=== PATIENT | male | born 1975 | race Two or more races ===

== ENCOUNTER 2022-07-26 16:50 | Emergency (ER) | payer MEDICAID, SELFPAY ==
[2022-07-26 16:56] VITALS: BP 119/80; BP 148/105; PULSE 107; PULSE 98; RESP 20; TEMP 36.4; O2SAT 99; BMI 25.1
--- NOTE | 2022-07-26 17:32 | ED.GENADULT ---
HPI - General Adult General Chief complaint: ETOH/Substance Use Stated complaint: OD,16MG NASAL NARCAN,BAGGED X'S 25 MIN,A&O NOW Time Seen by Provider: 07/26/22 16:53 Source: patient and EMS Mode of arrival: EMS Limitations: no limitations History of Present Illness HPI narrative: Patient comes to the emergency room after having an overdose. According to EMS, patient was given by bystander 16 mg intranasal of Narcan and he was being ventilated via bag mask valve. Eventually, patient woke up completely and was brought to the emergency room. Patient states that this was an accident, denies homicidal or suicidal ideation. Patient is asymptomatic. Patient states that he was experimenting with drugs, he usually does not use any drugs according to him Related Data Allergies Allergy/AdvReac Type Severity Reaction Status Date / Time No Known Allergies Allergy Unverified 02/29/20 14:38 [No Known Allergies*] Review of Systems Review of Systems: Constitutional : No Weight loss, No Fever, No Chills, No Night Sweats, No Fatigue, No Malaise ENT/Mouth : No Hearing loss, No Ear Pain, No Nasal Congestion, No Sinus Pain, No Hoarseness, No sore throat, No Rhinorrhea, No Swallowing Difficulty Eyes: No Eye Pain, No Swelling, No Redness, No Foreign Body, No Discharge, No Vision Changes Cardiovascular : No Chest Pain, No SOB, No Dyspnea on Exertion, No Orthopnea, No Edema, No Palpitations Respiratory : No Cough, No Sputum, No Wheezing, No Smoke Exposure, No Dyspnea Gastrointestinal : No Nausea, No Vomiting, No Diarrhea, No Constipation, No abdominal Pain, No Hematochezia, No Melena Genitourinary : no irregular bleeding, No Dysuria, No Urinary Frequency, No Hematuria, No Urinary Incontinence, No Urgency, No Flank Pain, No Urinary Flow Changes, No Hesitancy Musculoskeletal : No joint pain, No Myalgias, No Joint Swelling Skin : No Skin Lesions, No rash Neuro : No Weakness, No Numbness, No Paresthesias, No Loss of Consciousness, No Dizziness, No Headache Psych : No Anxiety/Panic, No Depression, No SI/HI/AH/VH, No Social Issues, Heme/Lymph: No Bruising, No Bleeding,No Lymphadenopathy Endocrine : No Polyuria, No Polydipsia, No Temperature Intolerance [facility] Past Medical History Medical History (Updated 07/26/22 @ 17:36 by Hilda Grimes MD) Substance abuse Social History Social History Advance Directives: No Advance Directives Information Provided: No Physical Exam ED Vital Signs: Vital Signs - 24 hr 07/26/22 16:56 Temperature 97.6 F Pulse Rate 98 Respiratory Rate 20 Blood Pressure 119/80 Oxygen Delivery Method Room Air BMI result Body Mass Index 25.1 Const Other: Appearance: Alert. Oriented X3. No acute distress. Eyes: Pupils equal, round and reactive to light. ENT: Pharynx normal. Neck: Normal inspection. Neck supple. No lymph nodes noted. No crepitus CVS: Normal heart rate and rhythm. Pulses normal. Normal S1 and S2 Respiratory: No respiratory distress. Breath sounds normal. No Wheezing. No rales Abdomen: Soft and nontender. No rigidity. No distention. Skin: Skin warm and dry. Normal skin color. Normal skin turgor. Extremities: No lower extremity edema. No Lacerations. No Rash Neuro: Oriented X 3. No motor deficit. No sensory deficit. Moving all extremities. No slurred speech. CN 2 through 12 grossly intact Psych: calm, cooperative, normal affect Course Course Course Narrative: -patient is alert and oriented x4, no acute distress, all vitals stable -patient has been here for approximately 1 hour. Patient states that he does not want to be here any longer. -I discussed with the patient that the effects of Narcan can wear off and he can become drowsy and stop breathing. Patient acknowledges the risk of leaving the hospital, and requested to leave against medical advice. -patient was given home Narcan -patient declined care/sude consult Medical Decision Making Differential Diagnosis Differential Diagnoses: The differential diagnosis associated with the presentation includes (Substance abuse, overdose) Discharge Plan Discharge Clinical Impression: Accidental overdose Patient Disposition: Left Against Medical Advice Instructions: Adult Overdose (ED) Additional Instructions: Please follow-up with your primary care physician tomorrow. If you have any worsening or new symptoms, please return to the emergency room or call 911
--- OUTSIDE RECORDS SUMMARY | 2022-07-26 17:32 | XMS_ITS | Continuity of Care Document ---
:1975 Author Organization [facility] Adult Address [address] [place] [id number]- Care Team Providers Name Role Phone Pj Lynch MD Primary Care Physician Encounter [facility] [place] ACCT R [id number] Date(s): 03/27/22 - 05/06/[address] [address] Attending Physician: Pj Lynch MD Allergies, Adverse Reactions, Alerts No Known Allergies Immunizations Given and Recorded Vaccine Date Status Refusal Reason SARS-CoV-2 (COVID-19) mRNA BNT-162b2 vac 10/30/20 Recorde d SARS-CoV-2 (COVID-19) mRNA BNT-162b2 vac 10/09/20 Recorde d Medications triamcinolone 0.1% topical cream See Instructions, Topically 2 times a day for 2 weeks, # 30 Gm, 0 Refills, Maintenance, 04/30/22 18:32:00 EST, [facility]/pharmacy #[id number], Partial fill upon patient request if the prescription is for a schedule II opioid drug., Topically 2 times a day for 2 w... Start Date: 04/30/22 Status: Ordered Problem List Condition Confirmation Course Effective Dates Status Health Stat us Informant Alcoholism Confirmed Active Substance abuse Confirmed Active Social History Social History Type Response Tobacco Other: 1/3 ppd, 15 pack yr h istory. Sex Patient Care team information Care Team PersonnelName: Pj Lynch MD Position: [facility] Primary Care Physician Member Role: PCP Address: Address: [address] [place] [address] [address] [place] [address]- Care Team Related PersonsName: MAGALI ALFONSO
--- OUTSIDE RECORDS SUMMARY | 2022-07-26 17:32 | XMS_ITS | Continuity of Care Document ---
:1975 Author Organization [facility] Adult Address [address] [place] [address]- Care Team Providers Name Role Phone Pj Lynch MD Primary Care Physician [place] [facility] [place] 03/26[place]22 - 04/02/22 [facility] Adult [address] [place] [address]- Encounter Diagnosis Well adult exam (Discharge Diagnosis) - 03/26/22 Alcoholism (Discharge Diagnosis) - 03/26/22 Substance abuse (Discharge Diagnosis) - 03/26/22 Screening for hyperlipidemia (Discharge Diagnosis) - 03/26/22 Fatigue (Discharge Diagnosis) - 03/26/22 Attending Physician: Pj Lynch MD Allergies, Adverse Reactions, Alerts No Known Allergies Immunizations Given and Recorded Vaccine Date Status Refusal Reason SARS-CoV-2 (COVID-19) mRNA BNT-162b2 vac 10/30/20 Recorde d SARS-CoV-2 (COVID-19) mRNA BNT-162b2 vac 10/09/20 Recorde d Problem List Condition Confirmation Course Effective Dates Status Health Stat us Informant Alcoholism Confirmed Active Substance abuse Confirmed Active Diagnosis Diagnosis Type Effective Dates Health Clinical Infor [facility] Status Service Well adult exam Discharge 03/26/22 Diagnosis Alcoholism Discharge 03/26/22 Diagnosis Substance abuse Discharge 03/26/22 Diagnosis Screening for Discharge 03/26/22 hyperlipidemia Diagnosis Fatigue Discharge 03/26/22 Diagnosis Vital Signs Most recent to oldest [Reference Range]: 1 Weight 83.5 kg (03/26/22 2:15 PM) Weight Obtained Via Patient/family stated (03/26/22 2:15 PM) Social History Social History Type Response Tobacco Other: 1/3 ppd, 15 pack yr h istory. Sex Patient Care team information PersonnelName: Pj Lynch MD Address: Address: [address] [place], [place] [address]
--- OUTSIDE RECORDS SUMMARY | 2022-07-26 17:32 | XMS_ITS | Continuity of Care Document ---
:1975 Author Organization [facility] Adult Address [address] [place] [address]- Care Team Providers Name Role Phone Not on Staff, PCP Primary Care Physician Unavailable Encounter [facility] Date(s): 12/30/21 - 01/29/22 [facility] Adult [address] [place] [id number] Allergies, Adverse Reactions, Alerts No Known Allergies
--- OUTSIDE RECORDS SUMMARY | 2022-07-26 17:32 | XMS_ITS | Continuity of Care Document ---
:1975 Author Organization [facility] Adult Address [address] [place] [address]- Care Team Providers Name Role Phone Pj Lynch MD Primary Care Physician Encounter [facility] ACCT R [id number] Date(s): 04/30/22 - 05/07/22 [facility] Adult [address] [place] [id number]- Encounter Diagnosis Elevated LFTs (Discharge Diagnosis) - 04/30/22 Elevated BP without diagnosis of hypertension (Discharge Diagnosis) - 04/30/22 Rash (Discharge Diagnosis) - 04/30/22 Attending Physician: Pj Lynch MD Allergies, Adverse Reactions, Alerts No Known Allergies Immunizations Given and Recorded Vaccine Date Status Refusal Reason SARS-CoV-2 (COVID-19) mRNA BNT-162b2 vac 10/30/20 Recorde d SARS-CoV-2 (COVID-19) mRNA BNT-162b2 vac 10/09/20 Recorde d Medications triamcinolone 0.1% topical cream See Instructions, Topically 2 times a day for 2 weeks, # 30 Gm, 0 Refills, Maintenance, 04/30/22 18:32:00 EST, [facility]/pharmacy #[id number], Partial fill upon patient request if the prescription is for a schedule II opioid drug., Topically 2 times a day for 2 w... Start Date: 04/30/22 Status: Ordered Problem List Condition Confirmation Course Effective Dates Status Health Stat us Informant Alcoholism Confirmed Active Substance abuse Confirmed Active Diagnosis Diagnosis Type Effective Dates Health Clinical Infor [facility] Status Service Elevated LFTs Discharge 04/30/22 Diagnosis Elevated BP without Discharge 04/30/22 diagnosis of Diagnosis hypertension Rash Discharge 04/30/22 Diagnosis Vital Signs Most recent to oldest [Reference Range]: 1 2 Weight 87.1 kg (04/30/22 3:59 PM) Oxygen Saturation [94-100 %] 97 % (04/30/22 3:59 PM) Pulse Rate [55-90 bpm] 83 bpm (04/30/22 3:59 PM) Blood Pressure [90-138/55-84 mm Hg] 142/83 mm Hg 145/ 82 mm Hg *H* *H* (04/30/22 4:09 PM) (04/30/22 3:59 PM) Temperature [96.8-100.4 DegF] 98.1 DegF (04/30/22 3:59 PM) Mode of Delivery (Oxygen) Room air (04/30/22 3:59 PM) Blood pressure sites Arm, left Arm, left (04/30/22 4:09 PM) (04/30/22 3:59 PM) Temperature Route Oral (04/30/22 3:59 PM) Weight Obtained Via Standing scale (04/30/22 3:59 PM) Social History Social History Type Response Tobacco Other: / ppd, 15 pack yr h istory. Sex Note Debby Vitale: PERFORM, SIGN, VERIFY Event Display: Patient Education/Instruction Authored Date: [id number] [facility] *[facility] [place] [facility] Clinical Summary Name CLAUDIA ACHARYA Age 47 Years 1975 PCP Pj Lynch MD PCP Visit Date 04/30/2022 15:45:00 Additional Instructions: Scheduled Appointments?? Future Appointments ?No Future Appointments Scheduled Follow-Up Instructions ?? Diagnosis Other specified abnormal findings of blood chemistry Medications: Please continue your medications until treatment is completed or stopped by your provider. Discuss any questions related to medications with your provider. Allergy Info:?? NKA Medications Given This Visit Future Orders ?Hepatitis B Surface Antigen? Order Date:04/30/22?- Complete on or after?04/30/22 ?Hepatitis C Ab? Order Date:04/30/22?- Complete on or after?04/30/22 ?Comprehensive Metabolic Panel? Order Date:04/30/22?- Complete on or after?04/30/22 Vital Signs Height Weight 87.1 kg BMI Blood Pressure 142 mm Hg/83 mm Hg Temperature 98.1 DegF Pulse Rate 83 bpm Respiratory Rate 02 Sat Mode of Delivery 97 %/Room air You can now view a summary of your hospital visit from the comfort of your home through a free online portal called [employer]. [employer] is a website that allows you to securely view yourmedical information including discharge summary, medications and follow-up visits. ??You can also send a secure electronic message to your doctor???s office to request appointments, renew medications or just ask a question. You can enroll at [email or web address] or register during your next office visit. Disclaimer:?? The information provided is of a general nature and is intended to be used in conjunction with the recommendations and advice of your health care practitioner. ??Every effort has been made to ensure that the information provided is accurate and complete at the time it is provided to you however, as your needs change, or, as new ??information becomes available, different or additional instructions may be required. If you have questions, please consult with your primary care provider or pharmacist, as appropriate.??This information is not intended to serve as substitution for assessment and evaluation by a qualified health care provider. If you do not have a primary care provider, you may find a [facility] provider by calling [facility] [employer] at [phone]. For information about the plan of care including goals and instructions for your diagnosis, please see the patient education orders section of this document. Patient Education Materials?? The content of this educational material or handout may have been modified, supplemented, or adaptedfrom its original content and format to support your individualized medical care. Patient Care team information Care Team PersonnelName: Pj Lynch MD Position: S Primary Care Physician Member Role: PCP Address: Address: [address] [place] [address] [address] [place] [address]- Care Team Related PersonsName: MAGALI ALFONSO
[2022-07-26 17:36] VITALS: O2SAT 95
[2022-07-26] MEDS: Naloxone HCl Nasal TAKE HOME 4 MG SPRAY NOSTRILALT (17:42)
== END 2022-07-26 17:42 | disposition left against medical advice (07) ==
PROVIDERS: Emergency Provider Emergency Medicine
DX: T40.1X1A Poisoning by heroin, accidental (unintentional), initial encounter (principal); Y92.9 Unspecified place or not applicable; Z71.51 Drug abuse counseling and surveillance of drug abuser
CPT/HCPCS: 99283

== ENCOUNTER 2023-01-19 12:33 | Outpatient (AMB) | payer OTHER, SELFPAY ==
--- NOTE | 2023-01-19 12:49 | MHC.OFFWIV ---
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 Pt is present with Allergies No Known Allergies [No Known Allergies*] Allergy (Unverified 02/29/20 14:38) [facility] Medical History (Updated 07/27/22 @ 00:00 by Background Daemon) Substance abuse Assessment & Plan Assessment & Plan (1) Tremors of nervous system: Code(s): R25.1 - Tremor, unspecified Plan Patient came in with his girlfriend. In the waiting room he was shaking uncontrollably. Apparently we could not take his insurance. I went to the lobby to evaluate him. I felt he needed to lie down. I brought him into the exam room. A set of vitals were taken he was stable. He admits to be drinking heavily and also history of substance use was unclear. Patient was not at answering questions appropriately at the beginning. Intranasal Narcan was administered. Emergency services were called and patient was transferred to the emergency room. Coding Level of Care Code Est Pt Level 1 (01670) Diagnoses Tremors of nervous system R25.1
== END 2023-01-19 13:26 | disposition home or self-care (01) ==
LOC: HO.HMGWI 12:34
DX: R25.1 Tremor, unspecified (principal)
CPT/HCPCS: 99211

== ENCOUNTER 2023-01-19 13:04 | Emergency (ER) | payer BC, OTHER, SELFPAY ==
--- NOTE | ~2023-01-19 | XR_ITS ---
EXAMINATION: XR CHEST CLINICAL INFORMATION: Shortness of breath, rule out pneumonia. COMPARISON: None available. TECHNIQUE: 2 views of the chest were obtained. FINDINGS: No significant abnormality is noted involving the heart, lungs, mediastinum, bony thorax or soft tissues. XR/XR chest 2V IMPRESSION: No acute cardiopulmonary process.
[2023-01-19 13:06] VITALS: BP 142/89; BP 149/84; PULSE 74; PULSE 85; RESP 16; TEMP 36.4; O2SAT 98; O2SAT 99; BMI 26.4
--- NOTE | 2023-01-19 13:24 | PC.NURSE ---
pt axox4, vss, respirations even and unlabored, sats 100% RA, lung sounds cta, skin warm and dry color appropriate to ethnicity. pt arrived via ems; [facility]t sob and tremors onset 1100 today. pt reports crack/cocaine use 2 days ago; no drug use today; given 4 mg narcan at walk in clinic prior to ems arrival. pt reports drinking multiple pints/day; increased alcohol intake this week; reports only 1 shot today; no hx withdrawal sx. pt denies cp/n/v/d/MONGE. partner and child at bedside. awaiting primary eval by ed provider. all needs met at this time.
--- NOTE | 2023-01-19 13:35 | ECG_ITS ---
Test Reason : DYSPNEA Blood Pressure : / mmHG Vent. Rate : 083 BPM Atrial Rate : 083 BPM P-R Int : 140 ms QRS Dur : 098 ms QT Int : 404 ms P-R-T Axes : 047 000 017 degrees QTc Int : 474 ms Normal sinus rhythm Incomplete right bundle branch block Borderline ECG No previous ECGs available Referred By: Aurelio Julio Electronically Signed By:Garry Anders
--- NOTE | 2023-01-19 14:10 | ED_ITS ---
HPI - SOB/Dyspnea General Chief Complaint: Dyspnea Stated Complaint: DIFF BREATHING, TREMORS Time Seen by Provider: 01/19/23 13:17 Source: patient and other (Girlfriend, Norma) Mode of arrival: EMS Limitations: no limitations History of Present Illness HPI Narrative: 48-year-old male who presents emergency department for evaluation of sudden onset of dyspnea and tremors that occurred while he was at work at 10:45 hours. Patient states that while he was at work at a sudden onset of uncontrolled shaking tremors which lasted 20-30 minutes, he also felt short of breath. He denied fever, rhinorrhea, sore throat, cough, chest pain. He states that he was feeling dyspnea on exertion he had nausea and vomited once at work he denied diarrhea he denied frequency or dysuria. He denied dark stools or bloody stools. He states he has never had an episode of uncontrolled shaking before. The patient does drink 1 pt of vodka daily and he states that he had a shot of vodka prior to going to work. He states that he usually starts drinking after work. He has had shake when he stops drinking but he has never had delirium tremens or alcohol withdrawal seizures in the past. Patient does use crack cocaine any use crack cocaine 2 days prior. He has a history of heroin use disorder and did have an overdose 07/26/2022 but states that he has not been using any injection heroin recently. The patient has been camping in December and went camping last week, he has not noticed any tick bite or rash. 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 The patient was seen at [facility]. I did review the note, the patient was evaluated in their waiting room. The patient was short of breath, tremulous, his skin was warm and moist. He was noted to be shaking uncontrollably. Patient was not answering questions appropriately and he was given intranasal Narcan and sent to emergency department by ambulance. Related Data Previous Rx's Medication Instructions Recorded doxycycline hyclate 100 mg tablet 100 mg PO Q12H 14 days #28 tabs 01/19/23 Allergies Allergy/AdvReac Type Severity Reaction Status Date / Time No Known Allergies Allergy Verified 01/19/23 13:14 [No Known Allergies*] Review of Systems Review of Systems: Yes all other systems are reviewed and are negative PMFSH Past Medical History [facility] Narrative: Past medical history: Crack cocaine use disorder, heroin use disorder, alcohol use disorder social history: He smokes 1/3 pack of cigarettes per day times 34 years. He drinks 1 pt of vodka daily and his last drink was this morning. He does admit to smoking crack cocaine 2 days prior. He denies any recent opiate use. Medical History (Updated 01/19/23 @ 16:48 by Aurelio Julio MD) Substance abuse Social History Social History Alcohol intake: current Alcohol intake frequency: 3 or more drinks per day Alcohol type: hard liquor Smoked in Last 30 Days: Yes Use of substances other than those prescribed or required for medical reasons: Yes Substance Use Type: Crack/Cocaine Last Used Substance: Days (ago) Advance Directives: No Advance Directives Information Provided: Yes Physical Exam Vital Signs: Vital Signs: Last Vital Signs Temp 97.5 F 01/19/23 13:06 Pulse 74 01/19/23 13:06 Resp 16 01/19/23 13:06 BP 142/89 H 01/19/23 13:06 Pulse Ox 98 01/19/23 13:06 O2 Del Method Room Air 01/19/23 13:06 BMI result Body Mass Index 26.4 Vital signs were normal. General: Awake, alert in no distress. He does appear to be slightly tremulous but does not have uncontrolled shaking, does not appear to be withdrawing from alcohol or opiates Head: Normocephalic, atraumatic EENT: PERRL, Lids normal, sclera normal, conjunctiva normal, nose normal , ears normal, throat without erythema or exudates Neck: Supple, no adenopathy, trachea midline and nontender Lung: breath sounds symmetric, no wheezing, rales or rhonchi Chest: symmetric movement, nontender Heart: regular rate and rhythm, normal S1, S2 no murmurs or rubs Abdomen: soft, non-tender, nondistended, normal bowel sounds Back: no vertebral tenderness, no CVAT Extremities: no deformities, moves all extremities symmetrically Skin: no rashes, no lesion, normal color and warmth Neuro: Awake, alert, oriented, normal speech, cranial nerves intact, moves all extremities symmetrically Psych: Pleasant, cooperative Medications Administered Discontinued Medications Generic Name Dose Route Start Last Admin Trade Name Freq PRN Reason Stop Dose Admin Acetaminophen 975 mg 01/19/23 14:10 01/19/23 14:38 Acetaminophen 325 Mg Tablet PO 01/19/23 14:11 975 mg ONCE STA Administration Sodium Chloride 1,000 mls @ 999 mls/hr 01/19/23 14:10 01/19/23 16:47 Ns IV 01/19/23 15:10 Infused .Q1H1M STA Infusion Lorazepam 1 mg 01/19/23 14:10 01/19/23 14:39 Lorazepam 2 Mg/Ml Vial IVPUSH 01/19/23 14:11 1 mg STAT STA Administration Medical Decision Making Medical Decision Making MDM Narrative: 48-year-old male who presents emergency department for evaluation of sudden onset of uncontrolled shaking and shortness of breath occurred while he was at work at 10:45 hours. Patient was seen by the [facility] and he was noted to be shaking uncontrollably, his skin was warm and moist and he was alter ed. He did receive intranasal Narcan but the patient denies using opiates recently. The patient did use crack cocaine 2 days prior and does drink alcohol daily but did drink alcohol prior going to work. He does have a history of alcohol withdrawal but he states that he does not feel accusing withdrawal at this time. The patient did go camping recently does not recount any tick bites. Patient's vital signs were unremarkable. His exam was unremarkable as well. I ordered the following evaluation on the patient: CBC, CMP, CRP, ESR, D- dimer, PT/INR, PTT, COVID-19, urine drug screen, ethanol level, troponin, tick- borne illness urinalysis, blood cultures x2, chest x-ray two view. I also ordered normal saline x1 L, Ativan 1 mg IV and Tylenol 975 mg orally. 1710: Patient's laboratory evaluation and chest x-ray were unremarkable. COVID-19 was negative in D-dimer was normal. Given his recent camping trip and his rigors and concerned that he may have a tick-borne illness and I will treat him empirically with doxycycline 100 mg pills, 1 pill every 12 hours times 14 days. Patient was given printed and verbal instructions and discharged home. Differential Diagnosis Differential Diagnoses: The differential diagnosis associated with the presentation includes Differential diagnosis includes but is not limited to pneumonia, urinary tract infection, alcohol withdrawal, opiate withdrawal, tick-borne illness, el ectrolyte abnormality, anemia, pulmonary embolism Admission/Observation Consideration of admission/observation: Escalation of care including admission/observation considered Lab Data MDM Lab Attestation statement: I reviewed the patient's lab results. My independent interpretation patient's laboratory evaluation is as follows: CBC was normal. ESR was normal. CRP was normal. CMP was normal except for an elevated AST and ALT. Patient's COVID-19 was negative. D-dimer was normal. Patient's urine drug screen was positive for cocaine only, patient does admit to using crack cocaine recently. UA was negative for infection. 01/19/23 14:35 01/19/23 14:35 Labs: Lab Results 01/19/23 01/19/23 01/19/23 Range/Units 14:35 14:35 14:35 WBC 5.1 (4.8-10.8) X10*3/uL RBC 4.55 L (4.60-5.80) X10*6/uL Hgb 14.8 (14.0-18.0) g/dl Hct 42.3 (42.0-52.0) % MCV 93.0 (80.0-98.0) fL MCH 32.5 (27.0-33.0) pg MCHC 35.0 (31.0-36.0) g/dl RDW 12.8 (11.0-16.0) % Plt Count 231 (160-400) X10*3/uL MPV 8.8 L (9.4-12.4) fL Immature Gran % (Auto) 0.4 (0.0-0.4) % Neut % (Auto) 73.4 H (45-73) % Lymph % (Auto) 13.0 L (20-40) % [place] % (Auto) 7.5 (2-11) % Eos % (Auto) 4.7 H (0-4) % Baso % (Auto) 1.0 (0-2) % Lymph # (Auto) 0.7 L (1.2-4.9) X10*3/uL [place] # (Auto) 0.4 (0.1-1.2) X10*3/uL Eos # (Auto) 0.2 (0.0-0.4) X10*3/uL Baso # (Auto) 0.1 (0.0-0.2) X10*3/uL Abs Immat Gran (auto) 0.02 (0.00-0.03) X10*3/uL Absolute Neuts (auto) 3.7 (2.0-8.3) x10*3/uL Absolute Nucleated RBC 0.000 (0.0-0.012) X10*3/uL Nucleated RBC % (auto) 0.0 (0.0-0.2) /100WBC ESR 2 (0-15) MM/HR APTT (26.0-36.4) SEC D-Dimer High Sensitivty NG/ML Sodium 139 (135-145) mmol/L Potassium 3.7 (3.3-5.1) mmol/L Chloride 104 (96-108) mmol/L Carbon Dioxide 24 (22-29) mmol/L Anion Gap 15 (12-20) BUN 12 (9-16) mg/dL Creatinine 0.85 (0.5-1.4) mg/dL Estim Creat Clear Calc 112.1 Estimated GFR > 60 Random Glucose 93 (60-115) mg/dL Calcium 9.0 (8.4-10.2) mg/dL Total Bilirubin 0.7 (0.0-1.0) mg/dL AST 69 H (5-37) U/L ALT 60 H (0-40) U/L Alkaline Phosphatase 43 (39-117) U/L Troponin I High Sens (<3.5-35.0) ng/L C-Reactive Protein < 0.04 (< or = 0.50) mg/dL Total Protein 7.5 (6.5-8.0) g/dL Albumin 4.5 (3.5-5.0) g/dL Lipase 43 (8-78) U/L Urine Color Urine Appearance Urine pH (5.0-9.0) Ur Specific [place] (1.005-1.025) Urine Protein (Neg-Trace) mg/dL Urine Glucose (UA) (Negative) mg/dL Urine Ketones (Negative) mg/dL Urine Blood (Negative) Urine Nitrite (Negative) Ur Leukocyte Esterase (Negative) Urine RBC (0-2) /HPF Urine WBC (0-5) /HPF Ur Squamous Epith Cells (0-2) /HPF Urine Bacteria (None Seen) Hyaline Casts (0-2) /LPF Urine Opiates Screen (Not Detect) Urine Fentanyl Screen (Not Detect) Ur Barbiturates Screen (Not Detect) Ur Phencyclidine Scrn (Not Detect) Ur Amphetamines Screen (Not Detect) U Benzodiazepines Scrn (Not Detect) Urine Cocaine Screen (Not Detect) U Marijuana (THC) Screen (Not Detect) Ethyl Alcohol mg/dL COVID-19 ([facility]) (Negative) COVID-19 Clin Com 01/19/23 01/19/23 01/19/23 Range/Units 14:35 14:35 14:35 WBC (4.8-10.8) X10*3/uL RBC (4.60-5.80) X10*6/uL Hgb (14.0-18.0) g/dl Hct (42.0-52.0) % MCV (80.0-98.0) fL MCH (27.0-33.0) pg MCHC (31.0-36.0) g/dl RDW (11.0-16.0) % Plt Count (160-400) X10*3/uL MPV (9.4-12.4) fL Immature Gran % (Auto) (0.0-0.4) % Neut % (Auto) (45-73) % Lymph % (Auto) (20-40) % [place] % (Auto) (2-11) % Eos % (Auto) (0-4) % Baso % (Auto) (0-2) % Lymph # (Auto) (1.2-4.9) X10*3/uL [place] # (Auto) (0.1-1.2) X10*3/uL Eos # (Auto) (0.0-0.4) X10*3/uL Baso # (Auto) (0.0-0.2) X10*3/uL Abs Immat Gran (auto) (0.00-0.03) X10*3/uL Absolute Neuts (auto) (2.0-8.3) x10*3/uL Absolute Nucleated RBC (0.0-0.012) X10*3/uL Nucleated RBC % (auto) (0.0-0.2) /100WBC ESR (0-15) MM/HR APTT 26.9 (26.0-36.4) SEC D-Dimer High Sensitivty < 150 NG/ML Sodium (135-145) mmol/L Potassium (3.3-5.1) mmol/L Chloride (96-108) mmol/L Carbon Dioxide (22-29) mmol/L Anion Gap (12-20) BUN (9-16) mg/dL Creatinine (0.5-1.4) mg/dL Estim Creat Clear Calc Estimated GFR Random Glucose (60-115) mg/dL Calcium (8.4-10.2) mg/dL Total Bilirubin (0.0-1.0) mg/dL AST (5-37) U/L ALT (0-40) U/L Alkaline Phosphatase (39-117) U/L Troponin I High Sens < 2.7 (<3.5-35.0) ng/L C-Reactive Protein (< or = 0.50) mg/dL Total Protein (6.5-8.0) g/dL Albumin (3.5-5.0) g/dL Lipase (8-78) U/L Urine Color Urine Appearance Urine pH (5.0-9.0) Ur Specific [place] (1.005-1.025) Urine Protein (Neg-Trace) mg/dL Urine Glucose (UA) (Negative) mg/dL Urine Ketones (Negative) mg/dL Urine Blood (Negative) Urine Nitrite (Negative) Ur Leukocyte Esterase (Negative) Urine RBC (0-2) /HPF Urine WBC (0-5) /HPF Ur Squamous Epith Cells (0-2) /HPF Urine Bacteria (None Seen) Hyaline Casts (0-2) /LPF Urine Opiates Screen (Not Detect) Urine Fentanyl Screen (Not Detect) Ur Barbiturates Screen (Not Detect) Ur Phencyclidine Scrn (Not Detect) Ur Amphetamines Screen (Not Detect) U Benzodiazepines Scrn (Not Detect) Urine Cocaine Screen (Not Detect) U Marijuana (THC) Screen (Not Detect) Ethyl Alcohol mg/dL COVID-19 ([facility]) Negative (Negative) COVID-19 Clin Com See Note 01/19/23 01/19/23 01/19/23 Range/Units 14:35 15:29 15:29 WBC (4.8-10.8) X10*3/uL RBC (4.60-5.80) X10*6/uL Hgb (14.0-18.0) g/dl Hct (42.0-52.0) % MCV (80.0-98.0) fL MCH (27.0-33.0) pg MCHC (31.0-36.0) g/dl RDW (11.0-16.0) % Plt Count (160-400) X10*3/uL MPV (9.4-12.4) fL Immature Gran % (Auto) (0.0-0.4) % Neut % (Auto) (45-73) % Lymph % (Auto) (20-40) % [place] % (Auto) (2-11) % Eos % (Auto) (0-4) % Baso % (Auto) (0-2) % Lymph # (Auto) (1.2-4.9) X10*3/uL [place] # (Auto) (0.1-1.2) X10*3/uL Eos # (Auto) (0.0-0.4) X10*3/uL Baso # (Auto) (0.0-0.2) X10*3/uL Abs Immat Gran (auto) (0.00-0.03) X10*3/uL Absolute Neuts (auto) (2.0-8.3) x10*3/uL Absolute Nucleated RBC (0.0-0.012) X10*3/uL Nucleated RBC % (auto) (0.0-0.2) /100WBC ESR (0-15) MM/HR APTT (26.0-36.4) SEC D-Dimer High Sensitivty NG/ML Sodium (135-145) mmol/L Potassium (3.3-5.1) mmol/L Chloride (96-108) mmol/L Carbon Dioxide (22-29) mmol/L Anion Gap (12-20) BUN (9-16) mg/dL Creatinine (0.5-1.4) mg/dL Estim Creat Clear Calc Estimated GFR Random Glucose (60-115) mg/dL Calcium (8.4-10.2) mg/dL Total Bilirubin (0.0-1.0) mg/dL AST (5-37) U/L ALT (0-40) U/L Alkaline Phosphatase (39-117) U/L Troponin I High Sens (<3.5-35.0) ng/L C-Reactive Protein (< or = 0.50) mg/dL Total Protein (6.5-8.0) g/dL Albumin (3.5-5.0) g/dL Lipase (8-78) U/L Urine Color Yellow Urine Appearance Clear Urine pH 8.0 (5.0-9.0) Ur Specific [place] 1.025 (1.005-1.025) Urine Protein 30 (1+) H (Neg-Trace) mg/dL Urine Glucose (UA) Negative (Negative) mg/dL Urine Ketones 15 (Negative) mg/dL Urine Blood Negative (Negative) Urine Nitrite Negative (Negative) Ur Leukocyte Esterase Negative (Negative) Urine RBC 0-2 (0-2) /HPF Urine WBC 0-5 (0-5) /HPF Ur Squamous Epith Cells 0-2 (0-2) /HPF Urine Bacteria None Seen (None Seen) Hyaline Casts 0-2 (0-2) /LPF Urine Opiates Screen Not Detected (Not Detect) Urine Fentanyl Screen Not Detected (Not Detect) Ur Barbiturates Screen Not Detected (Not Detect) Ur Phencyclidine Scrn Not Detected (Not Detect) Ur Amphetamines Screen Not Detected (Not Detect) U Benzodiazepines Scrn Not Detected (Not Detect) Urine Cocaine Screen POSITIVE H (Not Detect) U Marijuana (THC) Screen Not Detected (Not Detect) Ethyl Alcohol 54 mg/dL COVID-19 ([facility]) (Negative) COVID-19 Clin Com Independent Interpretation I performed an independent interpretation of an: EKG and Plain X-Ray Interpretation: My independent interpretation the patient's chest x-ray is as follows: No acute disease My independent interpretation of the patient's 12 EKG done at 13:44 hours is as follows normal sinus rhythm rate of 83, normal TN interval, QRS duration QTC interval, no ST segment elevation, no ST segment depression, inverted T-wave in V5, no PACs, no PVCs, no old EKG for comparison. Radiology Impression Discussion of test interpretation with radiology: I have reviewed the radiologist's reading. Radiologist Impression: XR chest 2V IMPRESSION: No acute cardiopulmonary process. Dictated By:Triston Youngblood MD Independent Historian Clinical information obtained from an independent historian. History obtained from or confirmed by: Spouse External Record Review External record reviewed: Other (Urgent care clinic note) Prescription Management I considered prescription management with: Antibiotic Chronic Conditions Patient?s care impacted by: Other (Cocaine use disorder) Discharge Plan Discharge Clinical Impression: Rigor, At high risk for tick borne illness Patient Disposition: Home, Self-Care Additional Instructions: Your uncontrolled shaking chills is concerning for possible infection. Your blood work was unremarkable. Your COVID test was negative Since you were camping recently, you are at high risk for tick-borne illness therefore I am treating you for tick-borne illness with doxycycline. Take doxycycline 100 mg pills, 1 pill every 12 hours for 14 days. Make sure you complete this course of antibiotics even if all of your tick-borne illness tests are negative. Take ibuprofen 200 mg pills, 2 pills every 6 hours as needed for pain or fever. Take Tylenol (acetaminophen) 500 mg pills, 2 pills every 6 hours as needed for pain or fever. Follow-up with your doctor in 2 days. Please return to the emergency department if your symptoms get worse or if you develop any symptoms that are concerning to you. Please see work note Prescriptions: New doxycycline hyclate 100 mg tablet 100 mg PO Q12H 14 Days Qty: 28 0RF No Action naloxone 4 mg/actuation spray,non-aerosol 4 mg intranasal ONCE Qty: 1 0RF Stand Alone Forms: Work/School Release
[2023-01-19] MEDS: 0.9 % Sodium Chloride 1,000 ML 999 ML IV (14:38)
[2023-01-19] MEDS: Acetaminophen 325 MG TABLET 975 MG PO (14:38)
[2023-01-19] MEDS: LORazepam 2 MG/ML VIAL 1 MG IVPUSH (14:39)
[2023-01-19 14:44] LABS: MANUAL DIFF FLAG NO
[2023-01-19 14:47] LABS: Basophils Absolute Auto 0.1 X10*3/uL (0.0-0.2); Eosinophils Absolute Auto 0.2 X10*3/uL (0.0-0.4); Eosinophils Percent Auto 4.7 % (0-4); Hematocrit 42.3 % (42.0-52.0); Hemoglobin 14.8 g/dl (14.0-18.0); Imm Gran Abs Auto 0.02 X10*3/uL (0.00-0.03); Imm Gran Pct Auto 0.4 % (0.0-0.4); Lymphocytes Absolute Auto 0.7 X10*3/uL (1.2-4.9); Mean Corpuscular Hemoglobin 32.5 pg (27.0-33.0); Mean Platelet Volume 8.8 fL (9.4-12.4); Monocytes Absolute Auto 0.4 X10*3/uL (0.1-1.2); Monocytes Percent Auto 7.5 % (2-11); Neutrophils Absolute Auto 3.7 x10*3/uL (2.0-8.3); Neutrophils Percent Auto 73.4 % (45-73); Platelet Count 231 X10*3/uL (160-400); Red Blood Count 4.55 X10*6/uL (4.60-5.80); Red Cell Distribution Width 12.8 % (11.0-16.0); White Blood Count 5.1 X10*3/uL (4.8-10.8)
[2023-01-19 14:56] LABS: Partial Thromboplastin Time 26.9 SEC (26.0-36.4)
[2023-01-19 15:02] LABS: COVID-19 Test Negative (Negative); IDNOW Serial# 08D9AD1C
[2023-01-19 15:11] LABS: D Dimer High Sensitivity < 150 NG/ML
[2023-01-19 15:40] LABS: Appearance Urine Clear; Color Urine Yellow; Glucose Urine UA Negative (Negative); Leukocyte Esterase Urine Negative (Negative); Nitrite Urine Negative (Negative); Specific Gravity - Urine 1.025 (1.005-1.025); UMIC TRIGGER UACC YES; Urine Blood Negative (Negative); Urine Ketones 15 mg/dL (Negative); Urine Protein 30 (1+) mg/dL (Neg-Trace)
[2023-01-19 15:42] LABS: Erythrocyte Sedimentation Rate 2 MM/HR (0-15)
[2023-01-19 15:45] LABS: Bacteria Urine None Seen (None Seen); Hyaline Casts Urine 0-2 /LPF (0-2); RBC Urine 0-2 /HPF (0-2); Squamous Epithelial Cell Urine 0-2 /HPF (0-2); WBC Urine 0-5 /HPF (0-5)
[2023-01-19 15:53] LABS: Amphetamine Screen Urine Not Detected (Not Detect); Barbiturates, Urine Not Detected (Not Detect); Benzodiazepines Screen Urine Not Detected (Not Detect); Cannabinoid Screen Urine Not Detected (Not Detect); Cocaine Screen Urine POSITIVE (Not Detect); Fentanyl, urine Not Detected (Not Detect); Opiate Screen Urine Not Detected (Not Detect); Phencyclidine Screen Urine Not Detected (Not Detect)
[2023-01-19 16:41] LABS: Ethanol 54 mg/dL
[2023-01-19 17:00] LABS: Alanine Aminotransferase 60 U/L (0-40); Albumin Level 4.5 g/dL (3.5-5.0); Alkaline Phosphatase 43 U/L (39-117); Anion Gap 15 (12-20); Aspartate Amino Transferase 69 U/L (5-37); Bilirubin Total 0.7 mg/dL (0.0-1.0); Blood Urea Nitrogen 12 mg/dL (9-16); C Reactive Protein < 0.04 mg/dL (< or = 0.50); Carbon Dioxide 24 mmol/L (22-29); Chloride 104 mmol/L (96-108); Creatinine Clr Calc Pharmacy 112.1; Estimated Glomerular Filt Rate > 60; Glucose Random 93 mg/dL (60-115); Lipase 43 U/L (8-78); Potassium 3.7 mmol/L (3.3-5.1); Sodium 139 mmol/L (135-145); Total Protein 7.5 g/dL (6.5-8.0); Troponin-I High Sensitivity < 2.7 ng/L (<3.5-35.0)
[2023-01-19] MEDS: Doxycycline Monohydrate 100 MG CAPSULE PO (17:27)
[2023-01-21 15:03] LABS: A. Phagocytphilium DNA,RT-PCR NOT DETECTED (NOT DETECTED); Babesia Microti DNA, RT-PCR NOT DETECTED (NOT DETECTED); Borrelia Miyamotoi,DNA RT-PCR NOT DETECTED (NOT DETECTED); E.Chaffeensis DNA RT-PCR NOT DETECTED (NOT DETECTED); Lyme(Borrelia ssp)DNA RT-PCR NOT DETECTED (NOT DETECTED)
== END 2023-01-19 17:31 | disposition home or self-care (01) ==
PROVIDERS: Emergency Provider Emergency Medicine Emergency Medical Services
DX: R06.02 Shortness of breath (principal); R25.1 Tremor, unspecified; R68.89 Other general symptoms and signs; R50.9 Fever, unspecified; F14.10 Cocaine abuse, uncomplicated; F11.10 Opioid abuse, uncomplicated; F17.210 Nicotine dependence, cigarettes, uncomplicated; Z71.6 Tobacco abuse counseling; Z79.899 Other long term (current) drug therapy
CPT/HCPCS: 36415; 71046; 80053; 80307; 81001; 83605; 83690; 84484; 85025; 85379; 85652; 85730; 86140; 87040; 87635; 87798; 87801; 93005; 96361; 96374; 99284; 99285; J2060

== ENCOUNTER → 2023-01-19 13:35 | Outpatient (BNV) | payer BC, OTHER, SELFPAY | PROVIDERS: Emergency Provider Emergency Medicine Emergency Medical Services; Visit Provider Internal Medicine Cardiovascular Disease | DX: R06.00 Dyspnea, unspecified (principal) | CPT/HCPCS: 93010 ==

== ENCOUNTER 2024-07-24 13:52 | Emergency (ER) | payer BC, SELFPAY ==
[2024-07-24 14:18] VITALS: BP 153/78; PULSE 114; RESP 18; TEMP 36.6; O2SAT 97; BMI 28.2
--- NOTE | 2024-07-24 14:20 | ED_ITS ---
HPI - General Adult General Chief complaint: Extremity Problem Stated complaint: feet pain Related Data Previous Rx's ?Medication ?Instructions ?Recorded doxycycline hyclate 100 mg tablet 100 mg PO Q12H 14 days #28 tabs 01/19/23 Allergies Allergy/AdvReac Type Severity Reaction Status Date / Time No Known Allergies Allergy Verified 07/24/24 14:22 [No Known Allergies*] [facility] Past Medical History Medical History (Updated 08/22/24 @ 18:03 by Seth Unger) Substance abuse Social History Social History Alcohol intake: current Alcohol intake frequency: 3 or more drinks per day Alcohol type: hard liquor Substance Use Type: Crack/Cocaine Advance Directives: No Advance Directives Information Provided: No Do you have a plan to hurt others: No Plan Physical Exam ED Vital Signs: BMI result Body Mass Index 28.2 Course Course Course Narrative: RME, this is a rapid medical exam performed by Srinivasan Unger please refer to primary provider for complete H&P- 49-year-old male presents for evaluation of pain to both of his feet. He reports he has had a rash to the bottom of both feet. He reports he has new boots for work. His father has diabetes and a leg amputation and the patient is concerned about diabetes. He has no known history of diabetes. Plan for basic labs. Discharge Plan Discharge Clinical Impression: Arthralgia of both feet Patient Disposition: Left W/O Completing Treatment Prescriptions: No Action doxycycline hyclate 100 mg tablet 100 mg PO Q12H 14 Days Qty: 28 0RF naloxone 4 mg/actuation spray,non-aerosol 4 mg intranasal ONCE Qty: 1 0RF Discharge Date/Time: 07/24/24 20:02
== END 2024-07-24 20:02 | disposition left against medical advice (07) ==
PROVIDERS: Emergency Provider Emergency Medicine
DX: M25.572 Pain in left ankle and joints of left foot (principal); M25.571 Pain in right ankle and joints of right foot; M79.672 Pain in left foot; M79.671 Pain in right foot
CPT/HCPCS: 99281